=== PATIENT | female | born 1995 | race African-American/Black ===

== ENCOUNTER 2022-01-12 11:48 | Emergency (ER) | payer MEDICAID ==
[~2022-01-12] VITALS: Ht 162.6 cm; Wt 86.0 kg
[2022-01-12 11:48] VITALS: BP 116/61
[~2022-01-12 11:48] MED LIST: PREN1TAB33 MT
[2022-01-12] MEDS ORDERED: ACETAMINOPHEN 325MG TABLET PO STA (12:00)
[2022-01-12 13:22] LABS: CLARITY URINE CLOUDY (CLEAR); COLOR URINE YELLOW (YELLOW); KETONES URINE NEGATIVE (NEGATIVE); LEUKOCYTE ESTERASE URINE TRACE (NEGATIVE); NITRITE URINE NEGATIVE (NEGATIVE); OCCULT BLOOD URINE NEGATIVE (NEGATIVE); PROTEIN URINE NEGATIVE (NEGATIVE); SPECIFIC GRAVITY URINE 1.019 (1.005-1.030)
[2022-01-12] MEDS ORDERED: NITR-87 MT (13:53)
== END 2022-01-12 14:09 | disposition home or self-care (01) ==
LOC: ER 11:48
DX: R07.89 Other chest pain (principal); N30.00 Acute cystitis without hematuria
CPT/HCPCS: 71045; 81003; 93005; 99285

== ENCOUNTER 2022-02-04 22:22 | Emergency (ER) | payer MEDICAID ==
[~2022-02-04] VITALS: Ht 162.6 cm; Wt 87.0 kg
[~2022-02-04 22:22] MED LIST changes: +NITR-87 MT
[2022-02-04 22:25] VITALS: BP 118/80
[2022-02-04] MEDS ORDERED: ACETAMINOPHEN 325MG TABLET PO ONE (22:30)
[2022-02-04 22:47] LABS: CLARITY URINE CLEAR (CLEAR); COLOR URINE YELLOW (YELLOW); KETONES URINE NEGATIVE (NEGATIVE); LEUKOCYTE ESTERASE URINE 3+ (NEGATIVE); NITRITE URINE NEGATIVE (NEGATIVE); OCCULT BLOOD URINE 3+ (NEGATIVE); PROTEIN URINE NEGATIVE (NEGATIVE); SPECIFIC GRAVITY URINE 1.017 (1.005-1.030)
[2022-02-04 23:03] LABS: *AMPHETAMINES SCREEN URINE NEGATIVE (NEGATIVE); *BARBITURATES SCREEN URINE NEGATIVE (NEGATIVE); *BENZODIAZEPINES SCREEN URINE NEGATIVE (NEGATIVE); *COCAINE SCREEN URINE NEGATIVE (NEGATIVE); CANNABINOID URINE SCREEN NEGATIVE (NEGATIVE); OPIATES URINE SCREEN NEGATIVE (NEGATIVE); PHENCYCLIDINE URINE SCREEN NEGATIVE (NEGATIVE)
[2022-02-04 23:04] LABS: METHADONE URINE SCREEN NEGATIVE (NEGATIVE)
[2022-02-04 23:31] LABS: BASOPHILS % 0.4 % (0.0-2.0); EOSINOPHILS % 0.6 % (0.0-5.0); HEMATOCRIT. 30.3 % (36.0-48.0); HEMOGLOBIN. 9.9 g/dL (12.0-16.0); LYMPHOCYTES % 15.2 % (20.0-50.0); MEAN CORPUSCULAR HEMOGLOBIN 28.7 pg (28.0-32.0); MEAN CORPUSCULAR VOLUME 87.6 fL (81.0-99.0); MEAN PLATELET VOLUME 8.6 fl (7.4-10.4); MONOCYTES % 8.5 % (2.0-8.0); NEUTROPHILS % 75.3 % (40.0-76.0); PLATELET 166 x1000/uL (130-400); RED BLOOD CELL COUNT 3.46 mill/uL (4.2-5.4); RED CELL DISTRIBUTION WIDTH 14.5 % (11.6-14.6)
[2022-02-04 23:38] LABS: CHLORIDE 107 mEq/L (98-107)
[2022-02-05 00:02] LABS: B-HCG QUANTITATIVE 12538 mIU/mL (<3)
[2022-02-05] MEDS ORDERED: CEFTRIAXONE 2 G PREMIX 50 ML IV ONE (03:00)
[2022-02-05] MEDS ORDERED: CEFU500T41 MT (03:05)
== END 2022-02-05 04:18 | disposition home or self-care (01) ==
LOC: ER 22:22
DX: O23.12 Infections of bladder in pregnancy, second trimester (principal); O44.52 Low lying placenta with hemorrhage, second trimester; Z3A.17 17 weeks gestation of pregnancy
CPT/HCPCS: 36415; 76805; 80053; 80305; 81003; 84702; 85025; 86850; 86900; 86901; 96365; 99284; J0696

== ENCOUNTER 2022-02-07 11:06 | Emergency (ER) | payer OTHER, MEDICAID ==
[~2022-02-07] VITALS: Ht 162.6 cm; Wt 89.0 kg
[~2022-02-07 11:06] MED LIST changes: +CEFU500T41 MT
[2022-02-07] MEDS ORDERED: ACETAMINOPHEN 325MG TABLET PO PRN (11:30)
[2022-02-07] MEDS ORDERED: SODIUM CHLORIDE 0.9% 1,000 ML IV ONE (11:30)
[2022-02-07 11:38] LABS: BASOPHILS % 0.4 % (0.0-2.0); EOSINOPHILS % 0.7 % (0.0-5.0); HEMATOCRIT. 31.1 % (36.0-48.0); HEMOGLOBIN. 10.3 g/dL (12.0-16.0); LYMPHOCYTES % 8.9 % (20.0-50.0); MEAN CORPUSCULAR HEMOGLOBIN 28.6 pg (28.0-32.0); MEAN PLATELET VOLUME 8.7 fl (7.4-10.4); MONOCYTES % 8.8 % (2.0-8.0); NEUTROPHILS % 81.2 % (40.0-76.0); PLATELET 165 x1000/uL (130-400); RED BLOOD CELL COUNT 3.61 mill/uL (4.2-5.4); RED CELL DISTRIBUTION WIDTH 14.1 % (11.6-14.6)
[2022-02-07 11:45] LABS: CHLORIDE 107 mEq/L (98-107)
[2022-02-07 12:08] LABS: B-HCG QUANTITATIVE 13040 mIU/mL (<3)
[2022-02-07 14:04] VITALS: BP 104/53
== END 2022-02-07 14:56 | disposition home or self-care (01) ==
LOC: ER 11:43
DX: O03.4 Incomplete spontaneous abortion without complication (principal)
CPT/HCPCS: 36415; 76815; 80053; 84702; 85025; 96360; 96361; 99284; J7030

== ENCOUNTER 2023-11-08 09:37 | Emergency (ER) | payer MEDICAID, OTHER ==
[~2023-11-08] VITALS: Ht 165.1 cm; Wt 88.0 kg
[2023-11-08 09:46] VITALS: BP 129/82; PULSE 77; RESP 20; TEMP 97.6; O2SAT 100
[2023-11-08] MEDS ORDERED: DEXAMETHASONE 10 MG/ML VIAL PO ONE (11:00)
[2023-11-08] MEDS ORDERED: DEXAMETHASONE 10 MG/ML VIAL PO NR (11:23)
[2023-11-08] MEDS ORDERED: POLY10DR LEFTEYE (12:23)
[2023-11-08] MEDS ORDERED: TUSSL MT (12:23)
[2023-11-08] MEDS ORDERED: KETOROLAC 60MG/2ML VIAL IM ONE (12:30)
== END 2023-11-08 13:40 | disposition home or self-care (01) ==
LOC: ER 09:37
DX: J06.9 Acute upper respiratory infection, unspecified (principal); E78.00 Pure hypercholesterolemia, unspecified; H10.9 Unspecified conjunctivitis; Z20.822 Contact with and (suspected) exposure to COVID-19
CPT/HCPCS: 81025; 87430; 87070; 87804 ×2; 99283; 87426; J1100; J1885; C9803; Z7610

== ENCOUNTER 2025-11-10 22:14 | Emergency (ER) | payer OTHER ==
[~2025-11-10] VITALS: Ht 162.6 cm; Wt 87.0 kg
[~2025-11-10 22:14] MED LIST changes: -CEFU500T41 MT; +CEFU500T66 MT; +POLY10DR LEFTEYE; +TUSSL MT
[2025-11-10 22:44] VITALS: O2SAT 99
[2025-11-10 23:19] LABS: BASOPHILS % 0.7 % (0.0-2.0); EOSINOPHILS % 0.8 % (0.0-5.0); HEMATOCRIT. 37.7 % (36.0-48.0); HEMOGLOBIN. 12.0 g/dL (12.0-16.0); LYMPHOCYTES % 39.4 % (20.0-50.0); MEAN PLATELET VOLUME 8.7 fl (7.4-10.4); MONOCYTES % 7.4 % (2.0-8.0); NEUTROPHILS % 51.7 % (40.0-76.0); PLATELET 210 x1000/uL (130-400); RED BLOOD CELL COUNT 4.36 mill/uL (4.2-5.4); RED CELL DISTRIBUTION WIDTH 14.1 % (11.6-14.6)
[2025-11-10 23:28] LABS: CREATININE 0.8 mg/dL (0.6-1.0); UREA NITROGEN BLOOD 7 mg/dL (9-23)
[2025-11-10 23:29] LABS: PROTEIN TOTAL 7.7 g/dL (6.0-8.3)
[2025-11-10 23:30] LABS: ASPARTATE AMINOTRANSFERASE 22 IU/L (<34); BILIRUBIN DIRECT 0.1 mg/dL (<=3.0); BILIRUBIN TOTAL 0.5 mg/dL (0.1-1.0)
[2025-11-10 23:54] LABS: CLARITY URINE CLEAR (CLEAR); COLOR URINE YELLOW (YELLOW); GLUCOSE URINE NEGATIVE (NEGATIVE); KETONES URINE 1+ (NEGATIVE); LEUKOCYTE ESTERASE URINE TRACE (NEGATIVE); NITRITE URINE NEGATIVE (NEGATIVE); OCCULT BLOOD URINE NEGATIVE (NEGATIVE); PH URINE 7.0 (4.5-8.0); PROTEIN URINE NEGATIVE (NEGATIVE); SPECIFIC GRAVITY URINE 1.020 (1.005-1.030); UROBILINOGEN URINE 1.0 E.U./dL (0.2-1.0)
[2025-11-11 00:09] LABS: HCG SCREEN NEGATIVE
[2025-11-11 01:00] LABS: SQUAMOUS EPITHELIAL CELL URINE 1+ /lpf (RARE/1+)
[2025-11-11 01:01] LABS: RBC URINE 0-2 /hpf (0-2); WBC URINE 0-2 /hpf (0-2)
[2025-11-11 01:02] LABS: BACTERIA URINE 1+
[2025-11-11] MEDS ORDERED: POLY17PO3 MT (02:23)
[2025-11-11] MEDS ORDERED: MAGN296S70 MT (02:23)
[2025-11-11 02:34] VITALS: BP 122/63; PULSE 71; RESP 17; TEMP 36.7; O2SAT 99
== END 2025-11-11 02:35 | disposition home or self-care (01) ==
LOC: ER 22:24
DX: K59.00 Constipation, unspecified (principal); E78.00 Pure hypercholesterolemia, unspecified; Z87.59 Personal history of other complications of pregnancy, childbirth and the puerperium
CPT/HCPCS: 36415; 74176; 76830; 76856; 80048; 80076; 81003; 81025; 84703; 85025; 99284